=== PATIENT | female | born 1935 | race Caucasian/White ===

== ENCOUNTER 2017-11-01 09:16 | Emergency (ER) | payer MEDICARE ==
[2017-11-01] MEDS ORDERED: ACETAMINOPHEN 500 MG TABLET PO ONE (09:23)
--- NOTE | 2017-11-01 09:28 | Emergency Department Record ---
History of Present Illness - General Chief Complaint: Fall Injury Stated Complaint: FALL INJURY Time Seen by Provider: 11/01/17 09:19 Source: Patient, Family Mode of Arrival: Ambulatory Limitations: No limitations - History of Present Illness Initial Comments: 82 yo female presents after injury to her left foot and ankle last night at 6pm. She dropped her cell phone on the floor. She tripped when she went to pick of the phone. She has pain to the lateral ankle and foot. She has a history of surgery on the foot 9 years ago. No other injuries or concerns at this time. No head injury. No recent illness. MD Complaint: Fall -: Hour(s) (15) Fall From: Standing When Fall Occurred: Other Fall Witnessed: No Place Fall Occurred: Home Loss of Consciousness: None Prolonged Down Time?: No Symptoms Prior to Fall: None Location: Other (left foot and ankle) Location - Extremities: Left: Ankle, Foot Severity: Moderate Quality: Aching Associated Symptoms: Denies - [place] Coma Scale Eye Response: (4) Open spontaneously Motor Response: (6) Obeys commands Verbal Response: (5) Oriented [place] Total: 15 - Related Data Previous Rx's Medication Instructions Recorded Hydrocodone/APAP 5/325Mg [[place] 1 each PO Q6H #12 tab 11/01/17 5Mg/325Mg] Allergies Allergy/AdvReac Type Severity Reaction Status Date / Time No Known Drug Allergies Allergy Verified 01/15/15 18:11 Review of Systems Constitutional: Denies: Chills, Fever, Malaise, Weakness Eyes: Denies: Eye discharge ENT: Denies: Congestion, Throat pain Respiratory: Denies: Cough Cardiovascular: Denies: Chest pain, Palpitations, Syncope Endocrine: Denies: Fatigue Gastrointestinal: Denies: Diarrhea, Nausea, Vomiting Musculoskeletal: Reports: As per HPI, Arthralgia, Joint swelling Skin: Denies: Bruising, Change in color, Rash Neurological: Reports: Tingling (chronic since prior foot surgery). Denies: Headache, Numbness, Weakness Psychiatric: Denies: Anxiety Hematological/Lymphatic: Denies: Easy bleeding, Easy bruising, Swollen glands Past Medical History - SOCIAL HISTORY Smoking Status: Former smoker - RESPIRATORY Hx Respiratory Disorders: No - CARDIOVASCULAR Hx Cardio Disorders: No - NEURO Hx Neuro Disorders: No - GI Hx GI Disorders: No - Hx Genitourinary Disorders: No - ENDOCRINE Hx Endocrine Disorders: No - MUSCULOSKELETAL Hx Musculoskeletal Disorders: Yes - PSYCH Hx Psych Problems: No - HEMATOLOGY/ONCOLOGY Hx Hematology/Oncology Disorders: No Physical Exam - General General Appearance: Alert, Oriented x3, Cooperative, No acute distress Limitations: No limitations - Head Head exam: Atraumatic, Normal inspection Head exam detail: negative: Abrasion, Contusion, Hematoma, Laceration - Eye Eye exam: Normal appearance. negative: Conjunctival injection, Scleral icterus - ENT ENT exam: Normal exam, Mucous membranes moist Ear exam: Normal external inspection Nasal Exam: Normal inspection Mouth exam: Normal external inspection - Neck Neck exam: Normal inspection - Cardiovascular Cardiovascular Exam: Regular rate, Normal rhythm, Normal heart sounds Peripheral Pulses: 2+: Dorsalis Pedis (L) - Rectal Rectal exam: Deferred - exam: Deferred - Extremities Extremities exam: Normal inspection, Joint swelling (lateral ankle), Normal capillary refill, Tenderness. negative: Calf tenderness, Full ROM, Pedal edema Image of Full Body: 1 - lateral ankle tenderness and foot lateral tenderness, mild swelling, no bruising - Back Back exam: Reports: Full ROM. Denies: CVA tenderness (R), CVA tenderness (L), Tenderness - Neurological Neurological exam: Alert, Oriented X3 - Psychiatric Psychiatric exam: Normal affect, Normal mood - Skin Skin exam: Dry, Intact, Normal color, Warm Course - Reevaluation(s) Reevaluation #1: 11/01/17 10:00 XR with minimally displaced distal fibular fracture per radiology. Blaise ordered She will be referred to ortho specialty clinic Disposition Disposition: Discharge Clinical Impression: Left fibular fracture Qualifiers: Encounter type: initial encounter Fibula location: distal Fracture type: closed Fracture morphology: unspecified fracture morphology Qualified Code(s): S82.832A - Other fracture of upper and lower end of left fibula, initial encounter for closed fracture Disposition: Home, Self-Care Condition: (1) Good Instructions: Ankle Fracture (ED) Additional Instructions: Minimize any walking Use the boot and walker at all times Call for an appointment with the orthopedic clinic for follow up Prescriptions: Hydrocodone/APAP 5/325Mg [[place] 5Mg/325Mg] 1 each PO Q6H #12 tab Referrals: CASS MCWILLIAMS [DOCTOR OF OSTEOPATH] - [facility] Specialty Clinics [Provider Group] Forms: Patient Portal Access Time of Disposition: 10:16 Quality - Quality Measures Quality Measures: N/A - Blood Pressure Screening Does Patient Have Any of the Following: Active Dx of HTN Blood Pressure Classification: Hypertensive Reading Systolic Measurement: 177 Diastolic Measurement: 93 Screening for High Blood Pressure: Patient Exclusion, Hx of HTN [G9744]
--- NOTE | 2017-11-02 15:03 | RADIOLOGY REPORT ---
EXAM: ANKLE LEFT 3 VIEWS HISTORY: ANKLE PAIN. TECHNIQUE: Three-views left ankle. COMPARISON: None. FINDINGS: Osteopenia. Postsurgical changes of the foot and ankle. Minimally displaced, obliquely-oriented fracture of the distal fibula. Associated soft tissue swelling. The ankle mortise is otherwise intact. IMPRESSION: 1. MINIMALLY DISPLACED DISTAL FIBULA FRACTURE. OSTEOPENIA. SOFT TISSUE SWELLING. 2. POSTSURGICAL CHANGES OF THE ANKLE AND FOOT. JOB NUMBER: [id number] MTDD
--- NOTE | 2017-11-02 15:05 | RADIOLOGY REPORT ---
EXAM: FOOT, LEFT 3 VIEWS HISTORY: PAIN. TECHNIQUE: Three views of the left foot. COMPARISON: None. ENCOUNTER: Initial. FINDINGS: Osteopenia. Postsurgical changes of the foot and ankle. A minimally displaced distal fibula fracture is noted. Associated soft tissue swelling. No other acute fractures. No dislocation. IMPRESSION: MINIMALLY DISPLACED DISTAL FIBULA FRACTURE. OSTEOPENIA WITH POST-OP CHANGE. JOB NUMBER: [id number] MTDD
== END 2017-11-01 10:43 | disposition home or self-care (01) ==
LOC: ER 09:16
DX: S82.832A Other fracture of upper and lower end of left fibula, initial encounter for closed fracture (principal); W01.0XXA Fall on same level from slipping, tripping and stumbling without subsequent striking against object, initial encounter; I10 Essential (primary) hypertension; Y92.009 Unspecified place in unspecified non-institutional (private) residence as the place of occurrence of the external cause; Z87.891 Personal history of nicotine dependence
CPT/HCPCS: 99283

== ENCOUNTER 2018-07-25 15:04 | Emergency (ER) | payer MEDICARE ==
[2018-07-25] MEDS ORDERED: LORAZEPAM 2 MG/ML VIAL IV ONE (15:29)
[2018-07-25] MEDS ORDERED: MORPHINE SULFATE 10 MG/ML VIAL IVP ONE (15:30)
--- NOTE | 2018-07-25 15:30 | Emergency Department Record ---
History of Present Illness - General Chief Complaint: Chest Pain Stated Complaint: L SHOULDER PAIN Time Seen by Provider: 07/25/18 15:21 Source: Patient, Family Mode of Arrival: Ambulatory Limitations: No limitations - History of Present Illness Initial Comments: The patient is here due to L shoulder pain for about a week. The pain has been sharp and stabbing and was initially intermittent but today has been constant. The patient denies any SOB, MAHI, or sweating with the pain. She also has had very mild anterior chest stabbing pain intermittently. That pain also was intermittent initially but today has been constant also. Both the shoulder and chest pain are worse with chest rotation and L shoulder ROM. The patient denies any fall, trauma, injury, or fevers. MD Complaint: Other Onset/Timin -: Week(s) Onset: Awoke with symptoms Pain Location: Other Pain Radiation: LUE Severity: Mild Severity scale (1-10): 2 Quality: Aching Consistency: Intermittent Improves With: Nothing Worsens With: Nothing Anginal Symptoms: Nausea Treatments Prior to Arrival: None - Related Data Allergies Allergy/AdvReac Type Severity Reaction Status Date / Time No Known Drug Allergies Allergy Verified 07/25/18 15:08 Travel Screening - Travel/Exposure Within Last 30 Days Have you traveled within the last 30 days?: No - Travel/Exposure Within Last Year Have you traveled outside the [place] in the last year?: No - Additonal Travel Details Have you been exposed to anyone with a communicable illness?: No - Travel Symptoms Symptom Screening: None Review of Systems Constitutional: Denies: Chills, Fever Eyes: Denies: Eye discharge ENT: Denies: Congestion Respiratory: Denies: Cough, Dyspnea Cardiovascular: Denies: Arrhythmia Endocrine: Denies: Fatigue Gastrointestinal: Denies: Nausea Genitourinary: Denies: Dysuria Musculoskeletal: Denies: Arthralgia Skin: Denies: Bruising Past Medical History - SOCIAL HISTORY Smoking Status: Former smoker Alcohol Use: Occasional Drug Use: None - RESPIRATORY Hx Respiratory Disorders: No - CARDIOVASCULAR Hx Cardio Disorders: No Hx Deep Vein Thrombosis: Yes - NEURO Hx Neuro Disorders: No - GI Hx GI Disorders: No - Hx Genitourinary Disorders: No - ENDOCRINE Hx Endocrine Disorders: No - MUSCULOSKELETAL Hx Musculoskeletal Disorders: Yes - PSYCH Hx Psych Problems: No - HEMATOLOGY/ONCOLOGY Hx Hematology/Oncology Disorders: No Family Medical History Any Significant Family History?: Yes Hx Heart Disease: Brother/Sister Physical Exam - General General Appearance: Alert, Oriented x3, Cooperative, No acute distress - Head Head exam: Atraumatic, Normocephalic, Normal inspection - Eye Eye exam: Normal appearance, PERRL, EOMI - Neck Neck exam: Normal inspection, Full ROM. negative: Tenderness - Respiratory Respiratory exam: Normal lung sounds bilaterally, Chest wall tenderness (The anterior chest pain is VERY reproducible with any palpation of the L anterior chest wall near the sternum. ). negative: Respiratory distress - Cardiovascular Cardiovascular Exam: Regular rate, Normal rhythm, Normal heart sounds. negative : Diastolic murmur, Systolic murmur - GI/Abdominal GI/Abdominal exam: Soft, Normal bowel sounds. negative: Tenderness - Extremities Extremities exam: Normal inspection, Tenderness (The L shoulder pain is VERY reproducible with palpation of the L shoulder. The pain also is reproduced with ROM of the L shoulder.), Other (The L arm is NVI.). negative: Full ROM - Neurological Neurological exam: Alert, Normal gait, Oriented X3. negative: Abnormal gait, Altered, Motor sensory deficit - Psychiatric Psychiatric exam: negative: Depressed Course Vital Signs 07/25/18 15:10 Temperature 98.1 F Pulse Rate 81 Respiratory 20 Rate Pulse Ox 97 - Reevaluation(s) Reevaluation #1: The patient is resting comfortably and states the pain is much improved due to the medicines. I did explain to her that her lab work, EKG and CXR do not demonstrate any cardiac etiology of the pain. Due to the fact her chest wall and shoulder are exquisitely tender and the pain is 100% reproducible I strongly doubted any cardiac etiology but due to her age it always could be a possibility. Because of that I did recommend staying in the hospital for a cardiology consult and cardiac echo but the patient is declining that plan. I did explain to her that by leaving she could go home and develop a cardiac issue that could lead to an VT, stroke, disability and . The patient understands and accepts the risks. She is to see her PCP this week for recheck and to have her BP rechecked also. Her BP is elevated but that has been a chronic problem for her and it has been stable for the last few years while she is here at [facility]. 07/25/18 16:29 Medical Decision Making - Data Complexity MDM Data: Labs Ordered and/or Reviewed, X-Ray Ordered and/or Reviewed, EKG Ordered and/or Reviewed - Lab Data Result diagrams: 07/25/18 15:20 07/25/18 15:20 - EKG Data -: EKG Interpreted by Me EKG: No Acute Changes, Normal EKG (LAFB, O/W neg.) - Radiology Data Radiology results: Report reviewed (CXR: Neg for acute changes.) Disposition Disposition: Discharge Clinical Impression: Chest wall pain Disposition: Home, Self-Care Condition: (2) Stable Instructions: Chest Wall Pain (ED) Additional Instructions: Please use Tylenol or Motrin for pain. Please see your family doctor for recheck and to also have your blood pressure evaluated further. Return to the ER for any worsening symptoms of pain, or any sweating or breathing problems. Forms: Patient Portal Access Time of Disposition: 16:35 Quality - Quality Measures Quality Measures: N/A - Blood Pressure Screening View Details: Yes Does Patient Have Any of the Following: No Blood Pressure Classification: Hypertensive Reading Systolic Measurement: 184 Diastolic Measurement: 94 Screening for High Blood Pressure: < First Hypertensive BP, F/U Documented > [ G8950] First Hypertensive Follow-up Interventions: Referral to alternative/primary care provider.
[2018-07-25 15:39] LABS: BASO % 0.3 % (0-6); EOS % 1.9 % (0-6); GRAN % 58.7 % (47-80); HEMATOCRIT 45.5 % (35.0-47.0); HEMOGLOBIN 15.1 gm/dl (11.6-16.0); LYMPH % 29.6 % (16-45); MEAN CORPUSCULAR HEMOGLOBIN 32.2 pg (27-33); MEAN CORPUSCULAR HGB CONC 33.2 g/dl (32-36); MEAN PLATELET VOLUME 10.1 fl (7.4-10.4); MONO % 9.5 % (0-9); PLATELET COUNT 301 K/uL (130-400); RED BLOOD COUNT 4.69 M/uL (3.80-5.40); RED CELL DISTRIBUTION WIDTH 13.1 % (11.5-14.5); WHITE BLOOD COUNT W/O DIFF 6.3 K/uL (4.2-12.2)
[2018-07-25 15:52] LABS: PARTIAL THROMBOPLASTIN TIME 29.1 SECONDS (24.5-39.1); PROTHROMBIN TIME (PATIENT) 10.5 SECONDS (9.5-12.1)
[2018-07-25 15:53] LABS: BLOOD UREA NITROGEN 7 mg/dL (8-23); CREATININE 0.6 mg/dL (0.5-0.9); EST GLOMERULAR FILTRATION RATE > 60 mL/min
[2018-07-25 15:56] LABS: GLUCOSE,RANDOM 89 mg/dL (74-109)
[2018-07-25 15:59] LABS: CREATINE PHOSPHOKINASE 63 U/L (26-192)
[2018-07-25 16:01] LABS: CKMB 3.1 ng/mL (<3.77)
--- NOTE | 2018-07-27 09:39 | RADIOLOGY REPORT ---
EXAM: CHEST, TWO VIEWS HISTORY: LEFT UPPER BACK PAIN. CHEST AND LEFT SHOULDER PAIN. TECHNIQUE: Upright PA and lateral views of the chest were obtained. Comparison: None. FINDINGS: The heart projects at the upper limits of normal in size. No pulmonary venous hypertension is seen. The thoracic aorta is tortuous and atherosclerotic. Linear scarring versus atelectasis is noted in the lateral aspects of each lung base. No lung consolidation is seen. Calcified right hilar lymph nodes are suspected and there is a calcified granuloma within the right middle lobe measuring 8 mm. There are degenerative changes scattered throughout the visualized spine. A single screw is noted within the distal left clavicle. IMPRESSION: 1. 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 2. MINOR LINEAR SCARRING VERSUS ATELECTASIS IN EACH LUNG BASE. 3. HEALED GRANULOMATOUS DISEASE. JOB NUMBER: [id number] [facility]
== END 2018-07-25 16:55 | disposition home or self-care (01) ==
LOC: ER 15:04
DX: R07.89 Other chest pain (principal); M25.512 Pain in left shoulder; R11.0 Nausea; M54.6 Pain in thoracic spine; Z87.891 Personal history of nicotine dependence
CPT/HCPCS: 99284 ×2; 96374; 96375; 82550; 85025; 85730; 85610; 82553; 80048; 84484; 71046; 93005; 93010; J2060; J2270